=== PATIENT | male | born 1940 | race Caucasian/White ===

== ENCOUNTER 2017-03-25 07:15 | Day surgery (SDC) | payer MEDICARE ==
[~2017-03-25] VITALS: Ht 182.9 cm; Wt 86.4 kg
[~2017-03-25 07:15] MED LIST: AMLO5 PO; ASPI-110 PO; CLON0.1T PO; FOLI1TAB6; HYDR-3535 PO; METO50TA PO; PROS5TAB PO; SACC1CAP3 PO; SULF500T3 PO; TAMS5CAP PO; XARE15TA PO
[2017-03-25 07:37] VITALS: BP 120/66; PULSE 75; RESP 18; TEMP 98.3; O2SAT 92
[2017-03-25] MEDS ORDERED: DIAZEPAM 5 MG TAB PO SCH (07:45)
[2017-03-25] MEDS ORDERED: LACTATED RINGER'S 1000 ML INJ 1,000 ML IV SCH (07:45)
[2017-03-25] MEDS ORDERED: ROSU10 PO (07:57)
[2017-03-25] MEDS ORDERED: KRIL1CAP10 (07:57)
[2017-03-25] MEDS ORDERED: CHOL5000 PO (07:57)
[2017-03-25] MEDS ORDERED: VITA250T25 PO (07:57)
[2017-03-25] MEDS ORDERED: PREV30CA11 PO (07:57)
[2017-03-25] MEDS ORDERED: BIOT10TA PO (07:57)
[2017-03-25] MEDS ORDERED: COEN1CAP (07:57)
[2017-03-25 08:13] LABS: AUTOMATED NEUTROPHIL # 6.9 TH/MM3 (1.8-7.7); BASOPHIL # 0.1 TH/MM3 (0-0.2); BASOPHIL % 0.6 % (0.0-2.0); EOSINOPHIL # 0.5 TH/MM3 (0-0.4); EOSINOPHIL % 4.6 % (0.0-4.0); HEMO FLAGS DIFF FINAL; LYMPH % 21.2 % (9.0-44.0); LYMPHOCYTE # 2.2 TH/MM3 (1.0-4.8); MEAN CELL VOLUME 104.9 FL (80.0-100.0); MEAN CORPUSCULAR HEMOGLOBIN 32.7 PG (27.0-34.0); MEAN CORPUSCULAR HGB CONC 31.2 % (32.0-36.0); MONO % 8.1 % (0.0-8.0); NEUT % 65.5 % (16.0-70.0); PLATELET COUNT 324 TH/MM3 (150-450); RED BLOOD COUNT 2.96 MIL/MM3 (4.50-5.90); RED CELL DISTRIBUTION WIDTH 14.8 % (11.6-17.2); WHITE BLOOD COUNT 10.5 TH/MM3 (4.0-11.0)
[2017-03-25 08:27] LABS: BICARBONATE 23.9 MEQ/L (21.0-32.0); POTASSIUM 4.4 MEQ/L (3.5-5.1)
[2017-03-25 08:59] LABS: APTT (PATIENT) 29.2 SEC (24.3-30.1); PROTHROMBIN TIME - PATIENT 10.7 SEC (9.8-11.6)
[2017-03-25 11:05] VITALS: BP 149/69; PULSE 77; RESP 18; TEMP 97.9; O2SAT 92
--- NOTE | 2017-03-25 11:11 | PD.RAD ---
Post Procedure Progress Note Pre Procedure Diagnosis: (1) Degenerative cervical spinal stenosis (2) Degenerative disc disease, cervical (3) H/O cervical spinal arthrodesis Post Procedure Diagnosis: (1) Degenerative cervical spinal stenosis (2) Degenerative disc disease, cervical (3) H/O cervical spinal arthrodesis Procedure Date: Mar 25, 2017 Supervising Radiologist: Meet Collins Proceduralist/Assist: Maureen Bruner, RT(R)(CV), Lina Sultana RT(R)() Plan of Activity Patient to Unit: ROPU Patient Condition: Good Additional Comments: L3-4 and L2-3 puncture. No CSF. Small contrast injection - primarily subdural/ epidural. Therefore, myelogram deferred for today. See PACS Report for procedural detail/treatment Meet Collins MD Mar 25, 2017 11:11
[2017-03-25] MEDS ORDERED: oxyCODONE/ACETAMINOPHEN 5 MG/325 MG TAB PO PRN (11:15)
[2017-03-25] MEDS ORDERED: IOHEXOL 300 MG/ML 50 ML BTL (for RAD DIAG) ONE (11:38)
--- NOTE | 2017-03-26 08:21 | RADRPT ---
EXAM DATE/TIME: 03/25/2017 10:23 [facility] COMPARISON: No previous studies available for comparison. INDICATIONS : Patient is in need of a myelogram due to quadriparesis and peripheral neuropathy. MEDICAL HISTORY : History of HTN, DM, AFIB, CAD, kidnet disease, hyperlipidemia, anemia, CVA, osteoarthritis. SURGICAL HISTORY : History of cervical fusion, cataract removal, CABG, IVC filter placeement. ENCOUNTER: Initial ACUITY: 4-6 months PAIN SCORE: 0/10 LUMBAR PUNCTURE TIME: 1033 hours FLUORO TIME: 4.2 minutes IMAGE SERIES: 0 CONTRAST: 2.5 cc Omnipaque (iohexol) 300 ACCESS LEVEL: L3-4 and L2-3 PROCEDURE : 1. Fluoroscopic guided lumbar puncture. 2. Attempted lumbar myelogram. The risks, benefits and alternatives to the procedure were explained and verbal and written consent w as obtained. The site was prepped in sterile fashion. Full sterile technique was used, including ca p, mask, sterile gloves and gown and a large sterile sheet. Hand hygiene and 2% chlorhexidine and/or betadine/alcohol prep was utilized per protocol for cutaneous antisepsis. The skin and subcutaneous tissues were infiltrated with local anesthetic solution. Patient could not tolerate prone positioning and was therefore placed in lateral decubitus position. Skin overlying the L3-4 region was then marked and 1% lidocaine solution injected for local anesthesi a. 22 gauge spinal needle was advanced into the thecal sac without difficulty. However, no CSF fluid could be aspirated. On lateral exam there is exuberant osteophytes are which appear to obliterate the central canal. Following multiple manipulations, decision was made to attempt access of both these o steophytes at the L2-3 level. Skin overlying the L2-3 level was then marked and 1% lidocaine solution injected for local anesthesia. 22 gauge spinal needle was then advanced under careful fluoroscopic g uidance into the thecal sac. Again, CSF fluid could not be aspirated. Minimal injection of contrast y ielded an epidural pattern although the needle was clearly in the posterior aspect of the sac. Needle was therefore repositioned more caudally in the L2-3 level. Now a very subtle amount of CSF could be aspirated. However, injection of contrast yielded predominantly subdural injection with only trace c ontrast noted in the sac. Despite multiple manipulations, there was insufficient opacification of the thecal sac to allow for performance of a complete CT myelogram. Therefore, the procedure was termina jazz. Incidental note is made of IVC filter which appears fractured into multiple pieces on the fluoroscopy images. CONCLUSION: 1. Attempted myelogram at L3-4 and L2-3 was unsuccessful due to apparently critically stenosed centra l canal yielding a primarily subdural injection, as above. Patient will likely require a direct cervi prasanth puncture for myelography. 2. Incidental note of fractured IVC filter in place. Meet Collins MD on March 26, 2017 at 8:08 Board Certified Radiologist. This report was verified electronically.
== END 2017-03-25 14:30 | disposition home or self-care (01) ==
LOC: HROP 07:15 → HRIP 07:16 → HROP 14:30
PROVIDERS: ATTEND Neurological Surgery
DX: M50.30 Other cervical disc degeneration, unspecified cervical region (principal); G62.9 Polyneuropathy, unspecified; M48.02 Spinal stenosis, cervical region; I10 Essential (primary) hypertension; I48.91 Unspecified atrial fibrillation; I25.10 Atherosclerotic heart disease of native coronary artery without angina pectoris; E78.5 Hyperlipidemia, unspecified; E11.9 Type 2 diabetes mellitus without complications; Z86.73 Personal history of transient ischemic attack (TIA), and cerebral infarction without residual deficits; M19.90 Unspecified osteoarthritis, unspecified site; Z95.1 Presence of aortocoronary bypass graft; Z98.1 Arthrodesis status; Z88.5 Allergy status to narcotic agent; Z86.2 Personal history of diseases of the blood and blood-forming organs and certain disorders involving the immune mechanism
CPT/HCPCS: 62304; 80048; 85025; 85610; 85730; J7120; Q9967